=== PATIENT | male | born 1950 | race Caucasian/White ===

== ENCOUNTER 2021-05-17 14:03 | Emergency (ER) | payer MEDICARE ==
[~2021-05-17] VITALS: Ht 175.3 cm; Wt 83.5 kg
== END 2021-05-17 16:58 | disposition home or self-care (01) ==
LOC: ER1 14:03
DX: Z23 Encounter for immunization (principal); U07.1 COVID-19; I25.10 Atherosclerotic heart disease of native coronary artery without angina pectoris; I25.2 Old myocardial infarction; I10 Essential (primary) hypertension; E78.5 Hyperlipidemia, unspecified; Z88.6 Allergy status to analgesic agent; F17.210 Nicotine dependence, cigarettes, uncomplicated
CPT/HCPCS: 99283; M0243